=== PATIENT | female | born 1950 | race Caucasian/White ===

== ENCOUNTER → 2017-08-02 | Outpatient (CLI) | payer MEDICARE, OTHER | END | disposition home or self-care (01) | LOC: RAD 12:37 | PROVIDERS: ATTEND Specialist | DX: R94.31 Abnormal electrocardiogram [ECG] [EKG] (principal); F11.20 Opioid dependence, uncomplicated | CPT/HCPCS: 93005 ==

== ENCOUNTER → 2017-11-13 | Outpatient (CLI) | payer MEDICARE, OTHER ==
[2017-11-13 15:10] LABS: ALANINE AMINOTRANSFERASE 18 U/L (12-78); ALBUMIN 3.6 g/dL (3.4-5.0); ANION GAP 4 mmol/L (5-15); CALCIUM 9.2 mg/dL (8.5-10.1); CHLORIDE 110 mmol/L (98-107); CHOLESTEROL, TOTAL 143 mg/dL (140-239); CREATININE 0.75 mg/dL (0.55-1.02); TRIGLYCERIDES 106 mg/dL (50-200); VLDL CHOLESTEROL 21 mg/dL (0-25)
[2017-11-13 15:20] LABS: ALKALINE PHOSPHATASE 126 U/L (45-117); BILIRUBIN,TOTAL 0.5 mg/dL (0.2-1.0); CHOL/HDL RATIO 2.2; CREATINE KINASE, TOTAL 78 U/L (26-192); HDL CHOL % 46 % (28-40); HDL CHOLESTEROL (DIRECT) 66 mg/dL (40-60); LDL CHOLESTEROL,CALCULATED 56 mg/dL (54-169); LDL/HDL RATIO 0.8 (0.5-3.0); THYROID STIMULATING HORMONE 0.611 mIU/L (0.358-3.740); TOTAL PROTEIN 7.1 g/dL (6.4-8.2)
== END ==
LOC: LAB 14:43
PROVIDERS: ATTEND Internal Medicine Cardiovascular Disease
DX: E78.5 Hyperlipidemia, unspecified (principal); F41.9 Anxiety disorder, unspecified; I10 Essential (primary) hypertension
CPT/HCPCS: 36415; 80053; 80061; 82550; 84443

== ENCOUNTER 2018-04-08 10:27 | Emergency (ER) | payer MEDICARE, OTHER ==
[~2018-04-08] VITALS: Ht 165.1 cm; Wt 77.3 kg
[2018-04-08] MEDS ORDERED: ALPR-475 PO (10:55)
[2018-04-08] MEDS ORDERED: FLUO40CA9 PO (10:55)
[2018-04-08] MEDS ORDERED: NAPR-856 PO (10:55)
[2018-04-08] MEDS ORDERED: METH-356 PO (10:55)
[2018-04-08] MEDS ORDERED: LEVO88TA2 PO (10:55)
[2018-04-08] MEDS ORDERED: OXYcodone/APAP 5/325MG TABLET ONE (13:00)
[2018-04-08] MEDS ORDERED: OXYcodone/APAP 5/325MG TABLET PO ONE (13:00)
[2018-04-08 13:07] VITALS: BP 128/60
== END 2018-04-08 13:09 | disposition home or self-care (01) ==
LOC: ED 13:07
DX: S16.1XXA Strain of muscle, fascia and tendon at neck level, initial encounter (principal); S60.211A Contusion of right wrist, initial encounter; S80.02XA Contusion of left knee, initial encounter; S09.90XA Unspecified injury of head, initial encounter; W01.0XXA Fall on same level from slipping, tripping and stumbling without subsequent striking against object, initial encounter; Y93.89 Activity, other specified; Y92.009 Unspecified place in unspecified non-institutional (private) residence as the place of occurrence of the external cause; Y99.8 Other external cause status
CPT/HCPCS: 70450; 70486; 72125; 99284

== ENCOUNTER 2018-04-19 12:54 | Emergency (ER) | payer MEDICARE, OTHER ==
[~2018-04-19] VITALS: Ht 165.1 cm; Wt 79.1 kg
[~2018-04-19 12:54] MED LIST: ALPR-475 PO; FLUO40CA9 PO; LEVO88TA2 PO; METH-356 PO; NAPR-856 PO
[2018-04-19] MEDS ORDERED: OXYcodone/APAP 5/325MG TABLET PO ONE ×2 (15:00→17:30)
[2018-04-19] MEDS ORDERED: DIAZEPAM 5 MG TABLET PO ONE (15:00)
[2018-04-19] MEDS ORDERED: HYDROcodone/APAP 5/325 TABLET ONE (15:01)
[2018-04-19] MEDS ORDERED: DIAZEPAM 5 MG TABLET ONE (15:02)
[2018-04-19] MEDS ORDERED: OXYcodone/APAP 5/325MG TABLET ONE ×2 (15:26→17:59)
[2018-04-19 18:48] VITALS: BP 127/59
== END 2018-04-19 18:51 | disposition home or self-care (01) ==
LOC: ED 18:16
DX: S09.90XA Unspecified injury of head, initial encounter (principal); I25.2 Old myocardial infarction; Z88.6 Allergy status to analgesic agent; Z88.1 Allergy status to other antibiotic agents; W01.198A Fall on same level from slipping, tripping and stumbling with subsequent striking against other object, initial encounter; Y93.89 Activity, other specified; Y92.009 Unspecified place in unspecified non-institutional (private) residence as the place of occurrence of the external cause; Y99.8 Other external cause status
CPT/HCPCS: 70450; 99284

== ENCOUNTER 2018-05-03 20:05 | Observation (INO) | payer MEDICARE, OTHER ==
[~2018-05-03] VITALS: Ht 165.1 cm; Wt 75.0 kg
[~2018-05-03 20:05] MED LIST changes: +ALBU18HF INH; +PANT40TA3 PO; +QVAR; +SIMV20TA3 PO
[2018-05-03 20:59] LABS: BASOPHILS # (AUTO) 0.04 x10^3/uL (0-0.1); BASOPHILS % (AUTO) 1 % (0-1); EOSINOPHILS # (AUTO) 0.06 x10^3/uL (0-0.4); EOSINOPHILS % (AUTO) 1 % (1-7); LYMPHOCYTES # (AUTO) 1.65 x10^3/uL (1-3.4); LYMPHOCYTES % (AUTO) 30 % (22-44); MD NO; MEAN CORPUSCULAR HEMOGLOBIN 29.9 pg (27.0-34.8); MEAN CORPUSCULAR HGB CONC 33.8 g/dL (32.4-35.8); MEAN CORPUSCULAR VOLUME 88.5 fL (80-100); MEAN PLATELET VOLUME 8.1 fL (7.4-10.4); MONOCYTES # (AUTO) 0.47 x10^3/uL (0.2-0.8); MONOCYTES % (AUTO) 9 % (2-9); NEUTROPHILS # (AUTO) 3.23 x10^3/uL (1.8-6.8); NEUTROPHILS % (AUTO) 59 % (42-75); PLATELET COUNT 269 x10^3/uL (130-400); RED BLOOD COUNT 4.69 x10^6/uL (3.82-5.3); RED CELL DISTRIBUTION WIDTH 13.1 % (9.6-15.2)
[2018-05-03 21:00] LABS: ALBUMIN 4.1 g/dL (3.4-5.0); ANION GAP 10 mmol/L (5-15); CALCIUM 9.2 mg/dL (8.5-10.1); CHLORIDE 107 mmol/L (98-107)
[2018-05-03 21:02] LABS: ALANINE AMINOTRANSFERASE 24 U/L (12-78); ALKALINE PHOSPHATASE 154 U/L (45-117); BILIRUBIN,TOTAL 0.6 mg/dL (0.2-1.0); CREATININE 0.97 mg/dL (0.55-1.02); SALICYLATE LEVEL < 1.7 mg/dL (2.8-20.0); TOTAL PROTEIN 7.2 g/dL (6.4-8.2)
[2018-05-03 21:03] LABS: ACETAMINOPHEN < 2 mcg/mL (10-30)
[2018-05-03 21:06] LABS: AMPHETAMINE SCREEN, URINE Negative (Negative); BARBITURATE SCREEN, URINE Negative (Negative); BENZODIAZEPINE SCREEN, URINE Positive (Negative); CANNABINOID SCREEN, URINE Negative (Negative); COCAINE SCREEN, URINE Negative (Negative); METHADONE SCREEN, URINE Positive (Negative); OPIATE SCREEN, URINE Negative (Negative)
[2018-05-03] MEDS ORDERED: METH-356 PO (21:56)
[2018-05-03] MEDS ORDERED: ALPR-475 PO ×2 (21:56)
[2018-05-03] MEDS ORDERED: albuterol INH (21:56)
[2018-05-04] MEDS ORDERED: LORazepam 1MG TABLET PO ONE (01:30)
[2018-05-04] MEDS ORDERED: LORazepam 1MG TABLET ONE (01:32)
[2018-05-04] MEDS ORDERED: OXYcodone/APAP 5/325MG TABLET ONE ×2 (01:53→06:17)
[2018-05-04] MEDS ORDERED: OXYcodone/APAP 5/325MG TABLET PO ONE ×2 (02:00→06:30)
[2018-05-04] MEDS ORDERED: ZIPRASIDONE 20 MG INJ IM ONE ×2 (02:24→02:30)
[2018-05-04 07:54] VITALS: BP 125/72
== END 2018-05-04 08:57 ==
LOC: ED 21:19 → EDIP 05-04 04:06
PROVIDERS: ADMIT Hospitalist; ATTEND Hospitalist
DX: F41.0 Panic disorder [episodic paroxysmal anxiety] (principal); F22 Delusional disorders; M79.7 Fibromyalgia; I25.2 Old myocardial infarction; G89.29 Other chronic pain; R45.851 Suicidal ideations
CPT/HCPCS: 36415; 80053; 80307; 80329; 85025; 99285; G0378; G0480

== ENCOUNTER 2018-05-04 21:01 | Emergency (ER) | payer MEDICARE, OTHER ==
[~2018-05-04] VITALS: Ht 167.6 cm; Wt 72.7 kg
[~2018-05-04 21:01] MED LIST changes: +albuterol INH
[2018-05-04 21:18] LABS: BASOPHILS # (AUTO) 0.04 x10^3/uL (0-0.1); BASOPHILS % (AUTO) 1 % (0-1); EOSINOPHILS # (AUTO) 0.03 x10^3/uL (0-0.4); EOSINOPHILS % (AUTO) 1 % (1-7); LYMPHOCYTES # (AUTO) 0.91 x10^3/uL (1-3.4); LYMPHOCYTES % (AUTO) 16 % (22-44); MD NO; MEAN CORPUSCULAR HEMOGLOBIN 29.9 pg (27.0-34.8); MEAN CORPUSCULAR HGB CONC 33.8 g/dL (32.4-35.8); MEAN CORPUSCULAR VOLUME 88.6 fL (80-100); MEAN PLATELET VOLUME 7.7 fL (7.4-10.4); MONOCYTES # (AUTO) 0.53 x10^3/uL (0.2-0.8); MONOCYTES % (AUTO) 10 % (2-9); NEUTROPHILS # (AUTO) 4.05 x10^3/uL (1.8-6.8); NEUTROPHILS % (AUTO) 73 % (42-75); PLATELET COUNT 288 x10^3/uL (130-400); RED BLOOD COUNT 4.67 x10^6/uL (3.82-5.3); RED CELL DISTRIBUTION WIDTH 13.3 % (9.6-15.2)
[2018-05-04] MEDS ORDERED: LORazepam 2 MG/ML, 1ML ONE (21:19)
[2018-05-04 21:27] LABS: ALBUMIN 3.8 g/dL (3.4-5.0); ANION GAP 8 mmol/L (5-15); CALCIUM 9.5 mg/dL (8.5-10.1); CHLORIDE 107 mmol/L (98-107)
[2018-05-04] MEDS ORDERED: LORazepam 2 MG/ML, 1ML IVPush ONE (21:30)
[2018-05-04 22:45] VITALS: BP 122/78
== END 2018-05-05 00:14 ==
LOC: ED 21:11
DX: R56.9 Unspecified convulsions (principal); Z00.8 Encounter for other general examination; I25.2 Old myocardial infarction; M81.0 Age-related osteoporosis without current pathological fracture; F17.200 Nicotine dependence, unspecified, uncomplicated
CPT/HCPCS: 36415; 70450; 80048; 82040; 85025; 93005; 99285

== ENCOUNTER 2018-05-06 18:09 | Emergency (ER) | payer MEDICARE, OTHER ==
[~2018-05-06] VITALS: Ht 165.1 cm; Wt 70.5 kg
[2018-05-06] MEDS ORDERED: PROMETHAZINE 25 MG/ML, 1ML ONE (18:32)
[2018-05-06] MEDS ORDERED: PROMETHAZINE 25 MG/ML, 1ML IM ONE (19:00)
[2018-05-06 19:37] VITALS: BP 112/67
== END 2018-05-06 20:03 ==
LOC: ED 18:36
DX: S52.571A Other intraarticular fracture of lower end of right radius, initial encounter for closed fracture (principal); I25.2 Old myocardial infarction; W19.XXXA Unspecified fall, initial encounter; Y93.89 Activity, other specified; Y92.89 Other specified places as the place of occurrence of the external cause; Y99.8 Other external cause status
CPT/HCPCS: 29125; 99284; 99285

== ENCOUNTER → 2018-07-31 | Outpatient (CLI) | payer MEDICARE, OTHER | END | disposition home or self-care (01) | LOC: CARD 08:26 | PROVIDERS: ATTEND Specialist | DX: R55 Syncope and collapse (principal); R56.9 Unspecified convulsions | CPT/HCPCS: 95819 ==

== ENCOUNTER → 2018-08-15 | Outpatient (CLI) | payer MEDICARE, OTHER | END | disposition home or self-care (01) | LOC: CFH 14:44 | PROVIDERS: ATTEND Specialist | DX: M48.02 Spinal stenosis, cervical region (principal); S06.890A Other specified intracranial injury without loss of consciousness, initial encounter; G31.89 Other specified degenerative diseases of nervous system; X58.XXXA Exposure to other specified factors, initial encounter; Y93.89 Activity, other specified; Y92.89 Other specified places as the place of occurrence of the external cause; Y99.8 Other external cause status | CPT/HCPCS: 70551; 72141 ==

== ENCOUNTER → 2018-11-04 | Outpatient (CLI) | payer MEDICARE, OTHER ==
[2018-11-04 08:30] LABS: ALANINE AMINOTRANSFERASE 20 U/L (12-78); ANION GAP 6 mmol/L (5-15); CHLORIDE 110 mmol/L (98-107)
[2018-11-04 08:41] LABS: ALKALINE PHOSPHATASE 141 U/L (45-117); BILIRUBIN,TOTAL 0.5 mg/dL (0.2-1.0); CHOL/HDL RATIO 2.6; CHOLESTEROL, TOTAL 209 mg/dL (140-239); CREATINE KINASE, TOTAL 70 U/L (26-192); CREATININE 0.83 mg/dL (0.55-1.02); HDL CHOL % 38 % (28-40); HDL CHOLESTEROL (DIRECT) 79 mg/dL (40-60); LDL CHOLESTEROL,CALCULATED 111 mg/dL (54-169); LDL/HDL RATIO 1.4 (0.5-3.0); THYROID STIMULATING HORMONE 0.914 mIU/L (0.358-3.740); TOTAL PROTEIN 7.4 g/dL (6.4-8.2); TRIGLYCERIDES 96 mg/dL (50-200); VLDL CHOLESTEROL 19 mg/dL (0-25)
[2018-11-04 08:46] LABS: HEMOGLOBIN A1C 5.5 % (4.2-6.3)
== END | disposition home or self-care (01) ==
LOC: LAB 08:00
PROVIDERS: ATTEND Family Medicine
DX: E78.5 Hyperlipidemia, unspecified (principal); R79.89 Other specified abnormal findings of blood chemistry; R73.09 Other abnormal glucose; I10 Essential (primary) hypertension; F41.9 Anxiety disorder, unspecified
CPT/HCPCS: 36415; 80053; 80061; 82550; 83036; 84443

== ENCOUNTER → 2018-11-27 | Outpatient (CLI) | payer MEDICARE, OTHER ==
[~2018-11-27] MED LIST changes: -METH-356 PO; +METH10TA2 PO
== END | disposition home or self-care (01) ==
LOC: CFH 14:39
PROVIDERS: ATTEND Family Medicine Sports Medicine
DX: S52.91XD Unspecified fracture of right forearm, subsequent encounter for closed fracture with routine healing (principal); M19.031 Primary osteoarthritis, right wrist; X58.XXXD Exposure to other specified factors, subsequent encounter

== ENCOUNTER 2019-05-02 10:10 | Day surgery (SDC) | payer MEDICARE, OTHER ==
[~2019-05-02] VITALS: Ht 165.1 cm; Wt 76.5 kg
[~2019-05-02 10:10] MED LIST changes: +BUPIVACAINE/PF 0.25% ONE; +LIDOCAINE 1%-EPI 1:100K, 30ML ONE
[2019-05-02] MEDS ORDERED: LACTATED RINGERS 1,000 ML IV SCH (10:40)
[2019-05-02 11:02] VITALS: BP 136/81
[2019-05-02] MEDS ORDERED: MIDAZOLAM 1 MG/ML, 2ML ONE (11:03)
[2019-05-02] MEDS ORDERED: FENTANYL PF 250 MCG/5ML ONE (11:03)
[2019-05-02] MEDS ORDERED: KETOROLAC 30 MG/1 ML ONE (11:05)
[2019-05-02] MEDS ORDERED: ONDANSETRON 2MG/ML, 2ML ONE (11:06)
[2019-05-02] MEDS ORDERED: DEXAMETHASONE 4 MG/ML, 1ML ONE (11:06)
[2019-05-02] MEDS ORDERED: PROPOFOL 10 MG/ML, 20ML ONE (11:06)
[2019-05-02] MEDS ORDERED: CEFAZOLIN 1,000 MG ONE (11:06)
[2019-05-02] MEDS ORDERED: FENTANYL PF 100 MCG/2ML IV PRN (12:30)
[2019-05-02] MEDS ORDERED: ALBUTEROL SULFATE 2.5 MG/3 ML NPPB PRN (12:30)
[2019-05-02] MEDS ORDERED: hydrALAzine 20 MG/ML, 1ML IV PRN (12:30)
[2019-05-02] MEDS ORDERED: PROMETHAZINE 12.5 MG SUPP PR PRN (12:30)
[2019-05-02] MEDS ORDERED: HYDROmorphone 2 MG/ML, 1ML IVPush PRN (12:30)
[2019-05-02] MEDS ORDERED: OXYcodone 5 MG/5 ML ORAL.SOL UDC PO PRN (12:30)
[2019-05-02] MEDS ORDERED: PROMETHAZINE 25 MG/ML, 1ML IM PRN ×2 (12:30)
[2019-05-02] MEDS ORDERED: ONDANSETRON ODT 8 MG PO PRN (12:30)
[2019-05-02] MEDS ORDERED: HALOPERIDOL 5 MG/ML IV PRN (12:30)
[2019-05-02] MEDS ORDERED: PROMETHAZINE 25 MG/ML, 1ML IV PRN (12:30)
[2019-05-02] MEDS ORDERED: MEPERIDINE/PF 25MG/0.5ML IVPush PRN (12:30)
[2019-05-02] MEDS ORDERED: PROMETHAZINE 25 MG SUPP PR PRN (12:30)
[2019-05-02] MEDS ORDERED: ALBUTEROL/IPRATROPIUM 2.5MG/0.5MG, 3 ML NPPB PRN (12:30)
[2019-05-02] MEDS ORDERED: LABETALOL 5MG/ML, 20ML IV PRN (12:30)
[2019-05-02] MEDS ORDERED: ONDANSETRON 2MG/ML, 2ML IV PRN (12:30)
[2019-05-02] MEDS ORDERED: LIDOCAINE 1%-EPI 1:100K, 20ML INFIL ONE (12:46)
[2019-05-02] MEDS ORDERED: OXYcodone 5 MG/5 ML ORAL.SOL UDC ONE (13:21)
== END 2019-05-02 16:40 | disposition home or self-care (01) ==
LOC: OUT 10:10
PROVIDERS: ATTEND Obstetrics & Gynecology Gynecology
DX: N85.8 Other specified noninflammatory disorders of uterus (principal); N89.8 Other specified noninflammatory disorders of vagina; M79.7 Fibromyalgia; E03.9 Hypothyroidism, unspecified; I25.10 Atherosclerotic heart disease of native coronary artery without angina pectoris; E78.5 Hyperlipidemia, unspecified; K21.9 Gastro-esophageal reflux disease without esophagitis; G43.909 Migraine, unspecified, not intractable, without status migrainosus; Z79.890 Hormone replacement therapy; Z79.899 Other long term (current) drug therapy; Z88.5 Allergy status to narcotic agent; Z88.8 Allergy status to other drugs, medicaments and biological substances
CPT/HCPCS: 58558; 88305; 93005; J0690; J1100; J1885; J2250; J2405; J2704; J3010; J3490; J7120

== ENCOUNTER 2019-06-06 12:53 | Outpatient (CLI) | payer MEDICARE, OTHER ==
[~2019-06-06 12:53] MED LIST changes: -ALPR-475 PO; +ALPR0.5T7 PO; -BUPIVACAINE/PF 0.25% ONE; -LIDOCAINE 1%-EPI 1:100K, 30ML ONE
== END 2019-06-06 23:59 | disposition home or self-care (01) ==
LOC: RAD 12:53
PROVIDERS: ATTEND Orthopaedic Surgery
DX: K22.4 Dyskinesia of esophagus (principal); R13.14 Dysphagia, pharyngoesophageal phase; R07.9 Chest pain, unspecified; M19.90 Unspecified osteoarthritis, unspecified site; I11.0 Hypertensive heart disease with heart failure; I50.9 Heart failure, unspecified; I25.10 Atherosclerotic heart disease of native coronary artery without angina pectoris; K21.9 Gastro-esophageal reflux disease without esophagitis; E03.9 Hypothyroidism, unspecified; Z88.5 Allergy status to narcotic agent; Z88.8 Allergy status to other drugs, medicaments and biological substances; Z90.49 Acquired absence of other specified parts of digestive tract; Z87.891 Personal history of nicotine dependence
CPT/HCPCS: 74220

== ENCOUNTER 2019-09-15 13:26 | Outpatient (CLI) | payer MEDICARE, OTHER | END 2019-09-15 23:59 | disposition home or self-care (01) | LOC: CFH 13:26 | PROVIDERS: ATTEND Internal Medicine Gastroenterology | DX: K76.89 Other specified diseases of liver (principal); K83.1 Obstruction of bile duct; R07.9 Chest pain, unspecified; K21.9 Gastro-esophageal reflux disease without esophagitis; M19.90 Unspecified osteoarthritis, unspecified site; Z90.49 Acquired absence of other specified parts of digestive tract; Z87.891 Personal history of nicotine dependence; Z88.8 Allergy status to other drugs, medicaments and biological substances; Z79.899 Other long term (current) drug therapy | CPT/HCPCS: 74181 ==

== ENCOUNTER 2020-01-02 07:58 | Outpatient (CLI) | payer MEDICARE, OTHER ==
[~2020-01-02 07:58] MED LIST changes: +SIMV20TA19 PO; -SIMV20TA3 PO
[2020-01-02 08:15] LABS: BASOPHILS # (AUTO) 0.03 x10^3/uL (0-0.1); BASOPHILS % (AUTO) 1 % (0-1); EOSINOPHILS # (AUTO) 0.15 x10^3/uL (0-0.4); EOSINOPHILS % (AUTO) 2 % (1-7); LYMPHOCYTES # (AUTO) 1.83 x10^3/uL (1-3.4); LYMPHOCYTES % (AUTO) 29 % (22-44); MD NO; MEAN CORPUSCULAR HEMOGLOBIN 30.5 pg (27.0-34.8); MEAN CORPUSCULAR HGB CONC 33.6 g/dL (32.4-35.8); MEAN CORPUSCULAR VOLUME 90.8 fL (80-100); MEAN PLATELET VOLUME 7.4 fL (7.4-10.4); MONOCYTES # (AUTO) 0.51 x10^3/uL (0.2-0.8); MONOCYTES % (AUTO) 8 % (2-9); NEUTROPHILS # (AUTO) 3.75 x10^3/uL (1.8-6.8); NEUTROPHILS % (AUTO) 60 % (42-75); PLATELET COUNT 301 x10^3/uL (130-400); RED CELL DISTRIBUTION WIDTH 13.1 % (9.6-15.2)
[2020-01-02 08:26] LABS: ALANINE AMINOTRANSFERASE 21 U/L (12-78); ALBUMIN 4.2 g/dL (3.4-5.0); ANION GAP 4 mmol/L (5-15); CALCIUM 9.2 mg/dL (8.5-10.1); CHLORIDE 108 mmol/L (98-107); CREATININE 1.04 mg/dL (0.55-1.02)
[2020-01-02 08:28] LABS: ALKALINE PHOSPHATASE 95 U/L (45-117); BILIRUBIN,TOTAL 0.6 mg/dL (0.2-1.0); TOTAL PROTEIN 7.5 g/dL (6.4-8.2)
== END 2020-01-02 23:59 | disposition home or self-care (01) ==
LOC: LAB 07:58
PROVIDERS: ATTEND Internal Medicine Gastroenterology
DX: Z12.11 Encounter for screening for malignant neoplasm of colon (principal); K83.1 Obstruction of bile duct; K21.9 Gastro-esophageal reflux disease without esophagitis; R07.9 Chest pain, unspecified; Z79.899 Other long term (current) drug therapy
CPT/HCPCS: 36415; 80053; 83036; 85025

== ENCOUNTER 2020-10-19 16:00 | Inpatient (IN) | payer MEDICARE, OTHER ==
[~2020-10-19] VITALS: Ht 167.6 cm; Wt 69.9 kg
[2020-10-19] MEDS ORDERED: SODIUM CHLORIDE FLUSH 10ML SYR IVF ONE ×2 (16:30→22:00)
[2020-10-19 17:10] LABS: BASOPHILS % (AUTO) 1 % (0-1); EOSINOPHILS % (AUTO) 4 % (1-7); LYMPHOCYTES % (AUTO) 27 % (22-44); MD NO; MEAN CORPUSCULAR HGB CONC 33.6 g/dL (32.4-35.8); MEAN PLATELET VOLUME 7.8 fL (7.4-10.4); MONOCYTES % (AUTO) 10 % (2-9); NEUTROPHILS % (AUTO) 59 % (42-75); PLATELET COUNT 247 x10^3/uL (130-400); RED BLOOD COUNT 4.66 x10^6/uL (3.82-5.3); RED CELL DISTRIBUTION WIDTH 13.2 % (9.6-15.2)
[2020-10-19 17:22] LABS: CHLORIDE 112 mmol/L (98-107)
[2020-10-19 17:29] LABS: ALANINE AMINOTRANSFERASE 35 U/L (12-78); ALBUMIN 3.8 g/dL (3.4-5.0); ALKALINE PHOSPHATASE 152 U/L (45-117); ANION GAP 5 mmol/L (5-15); BILIRUBIN,TOTAL 0.5 mg/dL (0.2-1.0); CALCIUM 9.3 mg/dL (8.5-10.1); CREATININE 0.86 mg/dL (0.55-1.02)
[2020-10-19 18:16] LABS: MICROSCOPIC INDICATED
--- NOTE | 2020-10-19 19:57 | NUR ---
PT AMBULATORY TO ROOM AT THIS TIME WITH STEADY GAIT.
[2020-10-19] MEDS ORDERED: ONDANSETRON 2MG/ML, 2ML IVPush ONE (20:30)
[2020-10-19] MEDS ORDERED: HYDROmorphone 1 MG/ML, 1ML INJ ONE (20:34)
[2020-10-19] MEDS ORDERED: ONDANSETRON 2MG/ML, 2ML ONE (20:35)
--- NOTE | 2020-10-19 20:43 | NUR ---
PT TO IMAGING.
[2020-10-19] MEDS: HYDROmorphone 2 MG/ML, 1ML IVPush PRN (20:51)
--- NOTE | 2020-10-19 21:44 | NUR ---
PT AMBULATORY TO IMAGING. Addendum: 10/19/20 at 2231 by MTUTTLE TO BATHROOM WITH STEADY GAIT.
[2020-10-19] MEDS ORDERED: SODIUM CHLORIDE 0.9% 1,000ML IVBOLUS ONE (22:00)
[2020-10-19] MEDS ORDERED: OMNIPAQUE 350 MG/ML, 100ML BOTTLE ONE (22:08)
--- NOTE | 2020-10-19 23:49 | NUR ---
PT MOVED TO HOSPITAL BED.
[2020-10-19] MEDS ORDERED: MELA1TAB15 PO (23:54)
[2020-10-19] MEDS ORDERED: OMEP20TA62 PO (23:54)
[2020-10-19] MEDS ORDERED: BECL10.6 INH (23:54)
[2020-10-19] MEDS ORDERED: DIPH25CA61 PO (23:54)
[2020-10-20] MEDS ORDERED: LABETALOL 5MG/ML, 20ML IVPush PRN (02:00)
[2020-10-20] MEDS ORDERED: HYDROmorphone 1 MG/ML, 1ML INJ ONE ×4 (02:21→12:44)
[2020-10-20] MEDS: HYDROmorphone 2 MG/ML, 1ML IVPush PRN ×3 (02:25→09:01)
[2020-10-20] MEDS: LACTATED RINGERS 1,000 ML IV SCH ×2 (02:25→19:57)
--- NOTE | 2020-10-20 04:30 | NUR ---
LATE ENTRY SUMMARY NOTE: THIS PT HAS AN EXTENSIVE MEDICAL HISTORY INCLUDING MULTIPLE BOWEL SX. SHE HAS A HX OF BOWEL OBSTRUCTION, STATES HER PRESENTING SYMPTOMS ARE SIMILAR TO THOSE IN THE PAST. PT STATES SHE'S HAD LOOSE BOWEL MOVEMENTS WITHIN 24 HOURS OF PRESENTING TO THE ER BUT DENIES PASSING GAS.
--- NOTE | 2020-10-20 04:53 | NUR ---
PT SLEEPING, VISIBLE CHEST RISE AND FALL.
--- NOTE | 2020-10-20 06:08 | NUR ---
PT REMAINS SLEEPING.
[2020-10-20 06:17] LABS: ANION GAP 5 mmol/L (5-15); CALCIUM 8.7 mg/dL (8.5-10.1); CHLORIDE 113 mmol/L (98-107)
[2020-10-20 06:18] LABS: CREATININE 0.59 mg/dL (0.55-1.02)
--- NOTE | 2020-10-20 06:55 | NUR ---
REPORT RECEIVED FROM ELIZABETH VARMA. ASSUMING PRIMARY CARE OF PT.
--- NOTE | 2020-10-20 07:10 | NUR ---
PT LYING ON HOSPITAL BED. STATING HAS 6/10 HEAD, NECK, BACK, STOMACH PAIN. RN TO SEE WHAT IS AVAILABLE FOR PAIN. VITAL SIGNS OBTAINED. VSS. PT STATING NEEDING TO VOID. RN UNHOOKED PT FROM MONITOR. PT AMBULATED TO RESTROOM WITH A STEADY GAIT.
[2020-10-20] MEDS ORDERED: PROMETHAZINE 25 MG/ML, 1ML ONE (08:58)
[2020-10-20] MEDS: PROMETHAZINE 25 MG/ML, 1ML IM PRN ×3 (09:01→20:38)
--- NOTE | 2020-10-20 09:03 | NUR ---
PT STATING NO PAIN RELIEF AND FEELING NAUSEATED. RN ADMINISTERED ADDITIONAL MEDICATION.
[2020-10-20] MEDS ORDERED: FENTANYL 25 MCG PATCH TD SCH (11:00)
--- NOTE | 2020-10-20 11:32 | NUR ---
RECEIVED BEDSIDE REPORT AND TRANSFER OF CARE FROM SANDEEP JOHNSON. PT REQUESTING DILAUDID FOR 05/14 ABD PAIN. VSS. DENIES NEED USE RESTROOM "I JUST GOT BACK FROM THERE." RESTING COMFORTABLY, PILLOWS PROIVDED FOR COMFORT. CALL LIGHT IN REACH. FALL PRECAUTIONS IN PLACE. WATCHING TV. AWAITING ROOM ON FLOOR. A&OX4. WILL CONTINUE TO MONITOR. ALL NEEDS MET AND ADDRESSED
--- NOTE | 2020-10-20 11:39 | NUR ---
REPORT TO ELIZABETH MCNEIL TO ASSUME PRIMARY CARE OF PT.
[2020-10-20] MEDS: HYDROmorphone 2 MG/ML, 1ML IVPush SCH ×3 (12:49→20:44)
--- NOTE | 2020-10-20 12:52 | NUR ---
PT AMBULATED TO RESTROOM WITH STEADY GAIT WITH SAW EDGE FUSER CIRCULAR. BACK TO ROOM, RESTING COMFORTABLY. VSS. MEDICATED NOTED PER MD ORDER FOR 06/14 ABD PAIN. PT REFUSED FENTANYL PATCH AT THIS TIME "I JUST WANT TO START WITH THE DILAUDID, IT WORKS WELL, IF I NEED THE PATCH WE CAN DO IT LATER." CALL LIGHT IN REACH. FALL PRECAUTIONS IN PLACE PT REQUEST RN CALL SISTER ABILIO LUGO [phone] WITH UPDATE ON POC.
--- NOTE | 2020-10-20 13:55 | NUR ---
ATTEMPTED TO CALL PT SISTER AT PROVIDED # FROM PT, UNABLE TO REACH OR LEAVE MSG. PT UPDATED. RESTING COMFORTABLY. VSS. CONTINUE AWAITING ROOM ON FLOOR.
--- NOTE | 2020-10-20 14:06 | NUR ---
PT SISTER AJAY CALLED, UPDATED ON POC PER PT REQUEST
--- NOTE | 2020-10-20 14:27 | NUR ---
PT GIVEN IS (INCENTIVE SPIROMETER), DEMONSTRATED AT 2500ML. REPORTS PAIN IMPROVED TO 3/10. REFUSES NEED FOR ADDITIONAL PAIN MEDICATION. DENIES NEED TO USE RESTROOM. VSS. CALL LIGHT IN REACH. FALL PRECAUTIONS IN PLACE. SEQUENTIALS REQUESTED FROM [facility]. RESTING COMFORTABLY.
--- NOTE | 2020-10-20 14:45 | NUR ---
ATTEMPTX1 TO CALL REPORT TO FLOOR RN FOR ROOM [id number]
--- NOTE | 2020-10-20 15:02 | NUR ---
PHONE/VERBAL REPORT TO FRANCIA RN'S. PT READY FOR TRANSPORT TO FLOOR.
[2020-10-20] MEDS ORDERED: MULT-508 PO (16:47)
[2020-10-20 19:00] VITALS: BP 119/69
[2020-10-21] MEDS: HYDROmorphone 2 MG/ML, 1ML IVPush SCH ×7 (01:04→23:24)
[2020-10-21] MEDS: PROMETHAZINE 25 MG/ML, 1ML IM PRN ×4 (01:33→19:40)
[2020-10-21 03:12] VITALS: BP 141/69
[2020-10-21 03:49] LABS: ANION GAP 12 mmol/L (5-15); CALCIUM 9.1 mg/dL (8.5-10.1); CHLORIDE 112 mmol/L (98-107); CREATININE 0.64 mg/dL (0.55-1.02)
[2020-10-21 06:54] VITALS: BP 130/68
[2020-10-21] MEDS: LACTATED RINGERS 1,000 ML IV SCH ×2 (09:19→23:24)
[2020-10-21 14:17] VITALS: BP 147/69
[2020-10-21 18:48] VITALS: BP 138/64
[2020-10-21] MEDS ORDERED: FENTANYL 25 MCG PATCH TD SCH (21:00)
[2020-10-21 23:41] VITALS: BP 90/61
[2020-10-22 00:33] VITALS: BP 130/68
[2020-10-22] MEDS: HYDROmorphone 2 MG/ML, 1ML IVPush SCH ×2 (05:12→10:20)
[2020-10-22] MEDS: PROMETHAZINE 25 MG/ML, 1ML IM PRN (06:12)
[2020-10-22 06:29] VITALS: BP 150/67
[2020-10-22 06:45] LABS: ANION GAP 6 mmol/L (5-15); CALCIUM 9.6 mg/dL (8.5-10.1); CHLORIDE 111 mmol/L (98-107)
[2020-10-22 06:47] LABS: CREATININE 0.69 mg/dL (0.55-1.02)
[2020-10-22] MEDS ORDERED: POTASSIUM CHLORIDE 20 MEQ in SODIUM CHLORIDE 0.9% 250 ML IV ONE (09:00)
[2020-10-22] MEDS ORDERED: POTASSIUM CHLORIDE 10 MEQ in D5%-LACTATED RINGERS 1,000 ML IV SCH (09:30)
[2020-10-22 12:19] VITALS: BP 145/69
[2020-10-22] MEDS ORDERED: HYDROmorphone 1 MG/ML, 1ML INJ IV ONE (14:00)
[2020-10-22 18:32] VITALS: BP 118/69
[2020-10-22] MEDS: METHADONE 10 MG TABLET PO SCH (19:58)
[2020-10-23 00:12] VITALS: BP 128/76
[2020-10-23] MEDS: PROMETHAZINE 25 MG/ML, 1ML IM PRN (03:55)
[2020-10-23 06:40] LABS: CHLORIDE 108 mmol/L (98-107)
[2020-10-23 06:55] LABS: ANION GAP 4 mmol/L (5-15); CALCIUM 9.1 mg/dL (8.5-10.1); CREATININE 0.69 mg/dL (0.55-1.02)
[2020-10-23 07:00] VITALS: BP 111/64
[2020-10-23] MEDS ORDERED: POTASSIUM CHLORIDE 40 MEQ in SODIUM CHLORIDE 0.9% 500 ML IV ONE (08:00)
[2020-10-23] MEDS ORDERED: MAGNESIUM SULFATE PMX 2GM/50ML 50 ML IV ONE (08:00)
[2020-10-23] MEDS ORDERED: POTASSIUM CHLORIDE 20 MEQ TAB.ER.PRT PO ONE ×2 (08:00→16:00)
[2020-10-23] MEDS: METHADONE 10 MG TABLET PO SCH ×2 (08:21→20:21)
[2020-10-23 13:25] VITALS: BP 92/42
[2020-10-23 18:30] VITALS: BP 107/69
[2020-10-23] MEDS ORDERED: MELATONIN 5 MG TABLET PO PRN (22:00)
[2020-10-23] MEDS ORDERED: DIPHENHYDRAMINE 25 MG CAPSULE PO PRN (22:30)
[2020-10-23] MEDS ORDERED: SIMVASTATIN 40 MG TABLET PO SCH (23:00)
[2020-10-24 01:05] VITALS: BP 108/66
[2020-10-24 05:26] LABS: CALCIUM 8.5 mg/dL (8.5-10.1); CREATININE 0.75 mg/dL (0.55-1.02)
[2020-10-24 05:41] LABS: ANION GAP 3 mmol/L (5-15); CHLORIDE 112 mmol/L (98-107)
[2020-10-24] MEDS ORDERED: LEVOTHYROXINE 88 MCG TABLET PO SCH (06:00)
[2020-10-24 08:13] VITALS: BP 126/73
[2020-10-24] MEDS ORDERED: FLUOXETINE HCL 20 MG CAPSULE PO SCH (09:00)
[2020-10-24] MEDS ORDERED: MULTIVITAMIN 1 TABLET PO SCH (09:00)
[2020-10-24] MEDS: METHADONE 10 MG TABLET PO SCH (09:30)
[2020-10-24 13:11] VITALS: BP 105/67
[2020-10-24] MEDS ORDERED: OMEPRAZOLE 20 MG CAPSULE.DR PO SCH (23:00)
== END 2020-10-24 14:26 | disposition home or self-care (01) | DRG 390 ==
LOC: ED 22:30 → EDIP 10-20 00:01 → 3N 10-20 15:28 → DCLOUNGE 10-24 14:08
PROVIDERS: ADMIT Family Medicine; ATTEND Hospitalist
PROC: 0D9670Z Drainage of Stomach with Drainage Device, Via Natural or Artificial Opening (ICD-10-PCS; principal; 2020-10-21)
DX: K56.51 Intestinal adhesions [bands], with partial obstruction (principal); E03.9 Hypothyroidism, unspecified; E78.5 Hyperlipidemia, unspecified; F43.10 Post-traumatic stress disorder, unspecified; G40.909 Epilepsy, unspecified, not intractable, without status epilepticus; G89.29 Other chronic pain; I10 Essential (primary) hypertension; J45.909 Unspecified asthma, uncomplicated; K56.2 Volvulus; M79.7 Fibromyalgia; M81.0 Age-related osteoporosis without current pathological fracture; F32.9 Major depressive disorder, single episode, unspecified; F41.9 Anxiety disorder, unspecified; I25.2 Old myocardial infarction; Z87.891 Personal history of nicotine dependence; Z90.710 Acquired absence of both cervix and uterus; Z90.49 Acquired absence of other specified parts of digestive tract; Z88.1 Allergy status to other antibiotic agents; Z88.5 Allergy status to narcotic agent; Z88.8 Allergy status to other drugs, medicaments and biological substances; Z82.49 Family history of ischemic heart disease and other diseases of the circulatory system; Z84.89 Family history of other specified conditions; Z79.891 Long term (current) use of opiate analgesic
CPT/HCPCS: 36415; 74018; 74177; 74250; 80048; 80053; 81001; 83605; 83690; 83735; 85025; G0378; J1170; J2405; J2550; J3480; Q9967; J3475; J7030; J7040; J7050; J7120; J7121; Q0163

== ENCOUNTER → 2020-12-17 | Outpatient (CLI) | payer MEDICARE, OTHER ==
[~2020-12-17] MED LIST changes: +BECL10.6 INH; +DIPH25CA61 PO; +MELA1TAB15 PO; +MULT-508 PO; +OMEP20TA62 PO; +OMNIPAQUE 350 MG/ML, 100ML BOTTLE ONE
[2020-12-17 10:16] LABS: BASOPHILS % (AUTO) 1 % (0-1); EOSINOPHILS % (AUTO) 3 % (1-7); LYMPHOCYTES % (AUTO) 38 % (22-44); MEAN CORPUSCULAR HEMOGLOBIN 31.3 pg (27.0-34.8); MEAN CORPUSCULAR HGB CONC 33.6 g/dL (32.4-35.8); MEAN PLATELET VOLUME 7.5 fL (7.4-10.4); MONOCYTES % (AUTO) 9 % (2-9); NEUTROPHILS % (AUTO) 49 % (42-75); PLATELET COUNT 205 x10^3/uL (130-400); RED BLOOD COUNT 4.45 x10^6/uL (3.82-5.3); RED CELL DISTRIBUTION WIDTH 12.9 % (9.6-15.2)
[2020-12-17 10:17] LABS: MD NO
[2020-12-17 10:25] LABS: ALANINE AMINOTRANSFERASE 24 U/L (12-78); ALBUMIN 3.9 g/dL (3.4-5.0); ANION GAP 4 mmol/L (5-15); CALCIUM 9.2 mg/dL (8.5-10.1); CHLORIDE 112 mmol/L (98-107); CHOLESTEROL, TOTAL 137 mg/dL (140-239); CREATININE 0.88 mg/dL (0.55-1.02)
[2020-12-17 10:36] LABS: ALKALINE PHOSPHATASE 145 U/L (45-117); BILIRUBIN,TOTAL 0.4 mg/dL (0.2-1.0); HDL CHOL % 49 % (28-40); HDL CHOLESTEROL (DIRECT) 67 mg/dL (40-60); LDL CHOLESTEROL,CALCULATED 56 mg/dL (54-169); LDL/HDL RATIO 0.8 (0.5-3.0); TOTAL PROTEIN 6.5 g/dL (6.4-8.2); TRIGLYCERIDES 69 mg/dL (50-200); VLDL CHOLESTEROL 14 mg/dL (0-25)
== END | disposition home or self-care (01) ==
LOC: RAD 09:15
PROVIDERS: ATTEND Family Medicine
DX: Z13.220 Encounter for screening for lipoid disorders (principal); R68.89 Other general symptoms and signs; R79.89 Other specified abnormal findings of blood chemistry; R19.06 Epigastric swelling, mass or lump; K56.609 Unspecified intestinal obstruction, unspecified as to partial versus complete obstruction; Z90.49 Acquired absence of other specified parts of digestive tract
CPT/HCPCS: 36415; 74177; 76705; 80053; 80061; 84443; 85025; Q9967

== ENCOUNTER → 2021-06-22 | Outpatient (CLI) | payer MEDICARE, OTHER ==
[~2021-06-22] MED LIST changes: -OMNIPAQUE 350 MG/ML, 100ML BOTTLE ONE
[2021-06-22 12:17] LABS: ALANINE AMINOTRANSFERASE 56 U/L (12-78); ALBUMIN 3.6 g/dL (3.4-5.0); ANION GAP 7 mmol/L (5-15); CALCIUM 8.7 mg/dL (8.5-10.1); CHLORIDE 106 mmol/L (98-107); CREATININE 0.67 mg/dL (0.55-1.02)
[2021-06-22 12:19] LABS: ALKALINE PHOSPHATASE 158 U/L (45-117); BILIRUBIN,TOTAL 0.4 mg/dL (0.2-1.0); TOTAL PROTEIN 6.9 g/dL (6.4-8.2)
[2021-06-22 13:38] LABS: MICROSCOPIC INDICATED
== END | disposition home or self-care (01) ==
LOC: LAB 11:19
PROVIDERS: ATTEND Family Medicine
DX: N17.9 Acute kidney failure, unspecified (principal); R30.0 Dysuria
CPT/HCPCS: 36415; 80053; 81001